=== PATIENT | female | born 1975 | race Caucasian/White ===

== ENCOUNTER 2023-12-03 09:36 | Outpatient (AMB) | payer BC, SELFPAY ==
--- NOTE | 2023-12-03 09:40 | AM.OFFWIN_ITS ---
Intake Vital Signs 12/03/23 09:43 Height 5 ft 4 in Weight 137 lb 2 oz BMI 23.5 BP 108/64 Blood Pressure Location Lt brachial Position Sitting Respiration 13 Pulse 72 Pulse Source Pulse Oximeter Pulse Oximetry (%) 95 Oxygen Delivery Method Room Air Intake Visit Reasons: Allergies Intake Note: Patient reports she has a history of food allergies and she believes she may have another food allergy as she has been experiencing itching throat. Patient reports she is unsure what triggered the symptom, but she would like to be allergy tested again as her last allergy test was 14 years ago. Patient would like a referral to: Dr. 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 Accompanied by: Self / Same As Patient Allergies amoxicillin Allergy (Severe, Verified 12/03/23 09:53) Hives cauliflower Allergy (Severe, Verified 12/03/23 09:53) Rash grapefruit Allergy (Severe, Verified 12/03/23 09:53) Anaphylaxis almonds Allergy (Severe, Uncoded 12/03/23 09:49) Rash Medication List - Last Reconciled 12/03/23 by Ely Ventura, [facility]- albuterol sulfate 90 mcg/actuation inhalation estradiol 0.01%(0.1mg/gram) vaginal fluticasone furoate 100 mcg/actuation (Arnuity Ellipta) 1 inh inhalation DAILY levonorgestrel-ethinyl estrad 0.15-0.03 mg (Marlissa (28)) 1 tab PO DAILY methenamine hippurate 1 g PO BID HPI HPI Comments History of Present Illness Details Here today needing 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 Started after eating white bread, for 1 week, which she needed to do for colon prep; never usually eats white bread. Sx include itchy skin of neck and tongue feels numb. Denies any resp or airway compromise. Reports almond allergy presented in same way w/ numbness of her face. PFSH Social History Patient Tobacco Use Status: Never used Tobacco Review of Systems Const All systems reviewed & are unremarkable except as noted in HPI and below Physical Exam Vital Signs: Last Vital Signs Pulse 72 12/03/23 09:43 Resp 13 12/03/23 09:43 BP 108/64 12/03/23 09:43 Pulse Ox 95 12/03/23 09:43 Oxygen Delivery Method Room Air 12/03/23 09:43 BMI result Body Mass Index 23.5 Const Other: awake alert no facial edema no rash pharynx clear, tongue normal RRR LS CTAB Assessment & Plan Assessment & Plan (1) Allergy: Comment: query related to white bread she has epi-pen at home referral placed for allergy testing advised to avoid known or suspected triggers Code(s): T78.40XA - Allergy, unspecified, initial encounter Qualifiers: Encounter type: initial encounter Qualified Code(s): T78.40XA - Allergy, unspecified, initial encounter Plan . Orders: Referrals Allergy & Immunology Referral T78.40XA - Allergy, unspecified, initial encounter Coding Level of Care Code Est Pt Level 3 (20712) Diagnoses Allergy, initial encounter T78.40XA Encounter type: initial encounter
[2023-12-03 09:43] VITALS: BP 108/64; PULSE 72; RESP 13; O2SAT 95; BMI 23.5
== END 2023-12-03 10:02 | disposition home or self-care (01) ==
PROVIDERS: PCP Family Medicine; Visit Provider Nurse Practitioner Family
DX: T78.40XA Allergy, unspecified, initial encounter (principal)
CPT/HCPCS: 99213

== ENCOUNTER 2024-05-23 09:48 | Outpatient (AMB) | payer BC, SELFPAY ==
--- NOTE | 2024-05-23 10:23 | A.OFFPC_ITS ---
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 Intake Note: establish care Is last menstrual period known: Yes Last menstrual period: 05/16/24 Post menopausal: No Patient : No Allergies amoxicillin Allergy (Severe, Verified 05/23/24 10:24) Hives cauliflower Allergy (Severe, Verified 05/23/24 10:24) Rash grapefruit Allergy (Severe, Verified 05/23/24 10:24) Anaphylaxis almonds Allergy (Severe, Uncoded 05/23/24 10:24) Rash Medication List - Last Reconciled 05/23/24 by Shola Escamilla MD albuterol sulfate 90 mcg/actuation inhalation beclomethasone dipropionate 80 mcg/actuation (Qvar RediHaler) 1 inh inhalation Q12H estradiol 0.01%(0.1mg/gram) vaginal fluticasone furoate 100 mcg/actuation (Arnuity Ellipta) 1 inh inhalation DAILY levonorgestrel-ethinyl estrad 0.15-0.03 mg (Marlissa (28)) 1 tab PO DAILY methenamine hippurate 1 g PO BID Tobacco use date assessed: 05/23/24 Dental Screening Dental Screen Date: 05/23/24 Did you have a dental visit in the last 12 months?: Yes Did you have a dental problem in the last 6 months where you did not have access to dental care?: No Was dental information given to patient?: Patient has dentist 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 ?? Prior PCP:?Dr combs Last office visit/CPE:? 1 yr ago Acute issue(s):? Concerns Re Kidneys ?? PMHx:? Asthma, Mild Sleep Apnea w/ CPAP. Pulm at [facility]. Lyme Disease. Chronic UTIs. SurgHx:? None FHx:?Mom: HTN, HLD, Diverticulitis. Dad: HLD. mGF: bone Cancer . pGF: Lymphoma. SocHx: Nonsmoker. etOH on Vacations. No Drugs HPI Comments History of Present Illness Details Documentation assistance for Shola Escamilla MD, was provided by Fady Smith,? Day Treatment Clinician/Art Therapist on 05/23/2024 at 11:16 AM EST. I, Dr. Escamilla, have read, observed, and verified documentation. 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 1. Little interest or pleasure in doing things: not at all 2. Feeling down, depressed, or hopeless: not at all 3. Trouble falling or staying asleep, or sleeping too much: not at all 4. Feeling tired or having little energy: not at all 5. Poor appetite or overeating: not at all 6. Feeling bad about yourself - or that you are a failure or have let yourself or your family down: not at all 7. Trouble concentrating on things, such as reading the newspaper or watching television: not at all 8. Moving or speaking so slowly that other people could have noticed. Or the opposite - being so fidgety or restless that you have been moving around a lot more than usual: not at all 9. Thoughts that you would be better off or of hurting yourself in some way: not at all Total score: 0 Depression Screening Interpretation: Negative Depression Screening Done: Yes 43901 - PHQ-9 Billing: Yes Source: Developed by Drs. Macario Krishnamurthy, Zainab Weber, Jose Alfredo Upton and colleagues, with an educational walt from [employer]. Thrive Questionnaire Date Thrive assessed: 05/23/24 I am a: Patient What is your living situation today?: I have a steady place to live Within the past 12 months, did the food you bought not last and you didn't have the money to get more?: Never true Within the past 12 months, did you worry whether your food would run out before you got money to buy more?: Never true Do you have trouble paying for medicines?: No Do you have trouble getting transportation to medical appointments?: No Do you have trouble paying your heating and electricity bill?: No Do you have trouble taking care of your child, family member or friend?: No Do you have trouble with day-to-day activities such as bathing, preparing meals, shopping, managing finances, etc.?: No Are you currently unemployed and looking for a job?: No Are you interested in more education?: No Please select the resources that you would like help with: None Currently or been in a relationship where the following occur: No concerns reported THRIVE Score: 0 AUDIT C Alcohol Use Questionnaire (AUDIT-C) 1. How often do you have a drink containing alcohol?: Never 2. How many drinks containing alcohol do you have on a typical day when you are drinking?: 1 or 2 3. How often do you have six or more drinks on one occasion?: Never Total Score: 0 ANNA-7 AMB Questionnaire ANNA-7 Date ANNA - 7 assessed: 05/23/24 Feeling nervous, anxious, or on edge: 0 = Not at all Not being able to stop or control worryin = Not at all Worrying too much about different things: 0 = Not at all Trouble relaxin = Not at all Being so restless that it is hard to sit still: 0 = Not at all Becoming easily annoyed or irritable: 0 = Not at all Feeling afraid as if something awful might happen: 0 = Not at all Total ANNA-7 score (0-4 normal; 5-9 mild; 10-14 moderate; 15-21 severe): 0 Source: Developed by Drs. Macario Krishnamurthy, Zainab Weber, Jose Alfredo Upton and colleagues, with an educational walt from [employer]. ANNA-7 Assessment Billing ANNA-7 Assessment Tool: ANNA-7 Assessment 97674 ACT Questionnaire In the past 4 weeks, how much of the time did your asthma keep you from getting as much done at work, school or at home?: None of the time During the past 4 weeks, how often have you had shortness of breath?: Not at all During the past 4 weeks, how often did your asthma symptoms wake you up at night or earlier than usual in the morning?: Not at all During the past 4 weeks, how often have you had to use your rescue inhaler or nebulizer medication?: Not at all How would you rate your asthma control during the past 4 weeks?: Completely controlled Score: 25 Review of Systems Const Denies chills, Denies fatigue, Denies fever(s), Denies headache(s) and Denies weakness ENT Denies dizziness and Denies headache(s) Card Denies chest pain, Denies lightheadedness, Denies dyspnea and Denies other (Palpitations) Resp Denies cough, Denies dyspnea, Denies wheezing and Denies other ( shortness of breath) Musc Denies numbness and Denies tingling Neuro Denies dizziness, Denies headache(s), Denies numbness, Denies tingling, Denies paresthesias and Denies weakness Psych Denies anxiety and Denies depression Endo Denies fatigue Aller/Immun Denies wheezing Physical exam (Primary Care) Vital Signs: Last Vital Signs Temp 98.0 F 05/23/24 10:29 Pulse 65 05/23/24 10:29 Resp 16 05/23/24 10:29 BP 110/64 05/23/24 10:29 Pulse Ox 100 05/23/24 10:29 Oxygen Delivery Method Room Air 05/23/24 10:29 BMI result Body Mass Index 23.0 Tobacco/Smoking Status: Tobacco use Status Tobacco use date assessed 05/23/24 05/23/24 10:32 Patient Tobacco Use Status Never used Tobacco 05/23/24 10:32 e-Cigarette/Vaping Use Never Used 05/23/24 10:32 PHQ-9: PHQ-9 Score PHQ-9: Total score 0 05/23/24 10:44 Depression Screening Interpretation: Negative Thrive Assessment: Date of Thrive Assessment Date Thrive assessed 05/23/24 05/23/24 10:32 Currently or been in a relationship where the following occur: No concerns reported Const General: no acute distress and well developed Nutritional Appearance: well nourished Orientation/consciousness: patient oriented x3 HENMT Head: Yes normocephalic and Yes atraumatic Eyes General: appearance normal, both eyes and all related structures Pupils: Equal, round and reactive pupils present EOM: EOMs intact bilaterally Resp Effort & Inspection: normal respiratory effort Auscultation: clear to auscultation bilaterally Cardio Rate: regular rate Rhythm: regular rhythm Heart sounds: S1 normal heart sound present, S2 normal heart sound present, no gallops, no murmurs and no rubs Neuro General: patient oriented x3 and gait normal Cranial nerves: Yes Equal, round and reactive pupils present Psych Affect: normal affect Coding Level of Care Code New Pt Level 3 (85896) Diagnoses Asthma J45.909 Sleep apnea G47.30 History of Lyme disease Z86.19 Chronic UTI N39.0 Laboratory exam ordered as part of routine general medical examination Z00.00 Additional Codes ANNA-7 Assessment Billing - ANNA-7 Assessment Tool: ANNA-7 Assessment 80535 ([id number]) Assessment & Plan Assessment & Plan (1) Asthma: Code(s): J45.909 - Unspecified asthma, uncomplicated Category: Medical Plan: Stable?and?patient?is?breathing?easily.??Pulmonary?auscultation?today?was?normal Continue?current?medication?regimen Follow-up?with?Pulmonary?as?recommended (2) Sleep apnea: Code(s): G47.30 - Sleep apnea, unspecified Category: Medical Plan: Uses?CPAP Follow-up?with?Pulmonary?as?recommended (3) History of Lyme disease: Code(s): Z86.19 - Personal history of other infectious and parasitic diseases Category: Medical Plan: Treated/resolved (4) Chronic UTI: Code(s): N39.0 - Urinary tract infection, site not specified Category: Medical Plan: She?is?on?methenamine?hippurate She?is?followed?by?Urogynecology Follow?with?specialist?as?recommended (5) Laboratory exam ordered as part of routine general medical examination: Code(s): Z00.00 - Encounter for general adult medical examination without abnormal findings Category: Medical Plan: Check?labs
[2024-05-23 10:29] VITALS: BP 110/64; PULSE 65; RESP 16; TEMP 36.7; O2SAT 100; BMI 23.0
== END 2024-05-23 11:18 | disposition home or self-care (01) ==
PROVIDERS: PCP Family Medicine; Visit Provider Family Medicine
DX: J45.909 Unspecified asthma, uncomplicated (principal); G47.30 Sleep apnea, unspecified; Z86.19 Personal history of other infectious and parasitic diseases; N39.0 Urinary tract infection, site not specified; Z00.00 Encounter for general adult medical examination without abnormal findings

== ENCOUNTER → 2024-05-23 09:48 | Outpatient (BNVA) | payer BC, SELFPAY | PROVIDERS: PCP Family Medicine; Visit Provider Family Medicine | DX: Z00.00 Encounter for general adult medical examination without abnormal findings (principal); J45.909 Unspecified asthma, uncomplicated; G47.30 Sleep apnea, unspecified; N39.0 Urinary tract infection, site not specified; Z86.19 Personal history of other infectious and parasitic diseases | CPT/HCPCS: 96127; 96160 ==

== ENCOUNTER 2024-05-30 07:38 | Outpatient (REF) | payer BC, SELFPAY ==
[2024-05-30 11:38] LABS: MANUAL DIFF FLAG NO
[2024-05-30 11:49] LABS: Basophils Absolute Auto 0.2 X10*3/uL (0.0-0.2); Basophils Percent Auto 1.8 % (0-2); Eosinophils Absolute Auto 0.4 X10*3/uL (0.0-0.4); Eosinophils Percent Auto 4.2 % (0-4); Hematocrit 37.3 % (37.0-47.0); Imm Gran Abs Auto 0.03 X10*3/uL (0.00-0.03); Imm Gran Pct Auto 0.3 % (0.0-0.4); Lymphocytes Absolute Auto 2.5 X10*3/uL (1.2-4.9); Lymphocytes Percent Auto 26.3 % (20-40); Mean Corpuscular HGB Conc 32.2 g/dl (31.0-35.0); Mean Corpuscular Hemoglobin 30.8 pg (27.0-33.0); Mean Corpuscular Volume 95.6 fL (80.0-98.0); Mean Platelet Volume 9.4 fL (9.4-12.3); Monocytes Absolute Auto 0.5 X10*3/uL (0.1-1.2); Monocytes Percent Auto 5.7 % (2-11); Neutrophils Absolute Auto 5.8 x10*3/uL (2.0-8.3); Neutrophils Percent Auto 61.7 % (45-73); Platelet Count 245 X10*3/uL (160-400); Red Cell Distribution Width 11.9 % (11.0-16.0); White Blood Count 9.4 X10*3/uL (4.8-10.8)
[2024-05-30 11:55] LABS: Appearance Urine Clear; Color Urine Yellow; Glucose Urine UA Negative (Negative); Leukocyte Esterase Urine Negative (Negative); Nitrite Urine Negative (Negative); Specific Gravity - Urine <= 1.005 (1.005-1.025); Urine Blood Negative (Negative); Urine Ketones Negative (Negative); Urine Protein Negative (Neg-Trace)
[2024-05-30 12:47] LABS: Alanine Aminotransferase 13 U/L (0-31); Albumin Level 4.2 g/dL (3.5-5.0); Alkaline Phosphatase 59 U/L (39-117); Anion Gap 10 (12-20); Aspartate Amino Transferase 26 U/L (5-31); Bilirubin Total 0.7 mg/dL (0.0-1.0); Blood Urea Nitrogen 19 mg/dL (9-16); Carbon Dioxide 27 mmol/L (22-29); Chloride 106 mmol/L (96-108); Cholesterol 177 mg/dL (<200); Estimated Glomerular Filt Rate 56; Glucose Fasting 85 mg/dL (60-99); HDL Cholesterol 62 mg/dL (>40); LDL Cholesterol Calculated 105 mg/dL (<100); Sodium 139 mmol/L (135-145); TSH reflex Free T4 1.31 uIU/mL (0.32-4.0); Total Protein 6.7 g/dL (6.5-8.0); Triglycerides 52 mg/dL (<150)
[2024-05-30 12:49] LABS: Creatinine Urine 12.69 mg/dL; Microalbumin Urine < 5.0 mg/L
== END 2024-05-30 07:39 | disposition home or self-care (01) ==
LOC: HO.WFDLDS 07:38
PROVIDERS: Visit Provider Family Medicine
DX: Z00.00 Encounter for general adult medical examination without abnormal findings (principal); I10 Essential (primary) hypertension
CPT/HCPCS: 36415; 80053; 80061; 81003; 82043; 82570; 84443; 85025

== ENCOUNTER 2024-06-09 12:13 | Outpatient (AMB) | payer BC, SELFPAY ==
--- NOTE | 2024-06-09 12:52 | MHC.PC.OV ---
Vital Signs 06/09/24 12:53 Height 5 ft 5 in Weight 134 lb 6 oz BMI 22.4 BP 108/68 Blood Pressure Location Lt brachial Position Sitting Pulse 57 Pulse Source Pulse Oximeter Pulse Oximetry (%) 99 Oxygen Delivery Method Room Air Intake Visit Reasons: CPE with f/u labs and health maint Intake Note: Physical, lab results Allergies amoxicillin Allergy (Severe, Verified 06/09/24 12:53) Hives cauliflower Allergy (Severe, Verified 06/09/24 12:53) Rash grapefruit Allergy (Severe, Verified 06/09/24 12:53) Anaphylaxis almonds Allergy (Severe, Uncoded 06/09/24 12:53) Rash Medication List - Last Reconciled 06/09/24 by Rema Omer PA-C albuterol sulfate 90 mcg/actuation inhalation beclomethasone dipropionate 80 mcg/actuation (Qvar RediHaler) 1 inh inhalation Q12H estradiol 0.01%(0.1mg/gram) vaginal levonorgestrel-ethinyl estrad 0.15-0.03 mg (Loreelissa (28)) 1 tab PO DAILY methenamine hippurate 1 g PO BID Tobacco use date assessed: 05/23/24 Dental Screening Dental Screen Date: 05/23/24 HPI CPE with f/u labs and health maint HPI Details Patient is a 48-year-old female with a significant past medical history of chronic UTIs, overactive bladder and chronic kidney disease stage 3 a, presenting today for a physical exam. Follows with Dr. Escamilla and completed labs prior to appointment. Her main concern is that her kidney function since 2021 has shown a decrease with a GFR between 56 and 70. She states it only ever gets to 70 when she is very well hydrated. She avoids NSAIDs. She states that she is stressed because she does not know why or how she got this. She did follow with Nephrology at 1 point and states that they told her she was fine and she states that they never did any imaging and she just does not feel confident with this. She tries very hard to take care of herself and would like a 2nd opinion. Around the time that she developed the kidney disease she also did have Lyme, frequent UTIs, and was on ibuprofen for about 3 months for neck pain. She overall feels well and exercises regularly. Colonoscopy: Completed 11/2023 and needs a repeat in 2028 due to precancerous polyps. mammo: UTD, 06/02- [place] 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 1. Little interest or pleasure in doing things: not at all 2. Feeling down, depressed, or hopeless: not at all 3. Trouble falling or staying asleep, or sleeping too much: not at all 4. Feeling tired or having little energy: not at all 5. Poor appetite or overeating: not at all 6. Feeling bad about yourself - or that you are a failure or have let yourself or your family down: not at all 7. Trouble concentrating on things, such as reading the newspaper or watching television: not at all 8. Moving or speaking so slowly that other people could have noticed. Or the opposite - being so fidgety or restless that you have been moving around a lot more than usual: not at all 9. Thoughts that you would be better off or of hurting yourself in some way: not at all Total score: 0 Source: Developed by Drs. Macario Krishnamurthy, Zainab Weber, Jose Alfredo Upton and colleagues, with an educational walt from [employer]. Thrive Questionnaire Date Thrive assessed: 05/23/24 I am a: Patient What is your living situation today?: I have a steady place to live Within the past 12 months, did the food you bought not last and you didn't have the money to get more?: Never true Within the past 12 months, did you worry whether your food would run out before you got money to buy more?: Never true Do you have trouble paying for medicines?: No Do you have trouble getting transportation to medical appointments?: No Do you have trouble paying your heating and electricity bill?: No Do you have trouble taking care of your child, family member or friend?: No Do you have trouble with day-to-day activities such as bathing, preparing meals, shopping, managing finances, etc.?: No Are you currently unemployed and looking for a job?: No Are you interested in more education?: No Please select the resources that you would like help with: None Currently or been in a relationship where the following occur: No concerns reported THRIVE Score: 0 AUDIT C Alcohol Use Questionnaire (AUDIT-C) 1. How often do you have a drink containing alcohol?: Never Total Score: 0 ANNA-7 AMB Questionnaire ANNA-7 Date ANNA - 7 assessed: 05/23/24 Feeling nervous, anxious, or on edge: 0 = Not at all Not being able to stop or control worryin = Not at all Worrying too much about different things: 0 = Not at all Trouble relaxin = Not at all Being so restless that it is hard to sit still: 0 = Not at all Becoming easily annoyed or irritable: 0 = Not at all Feeling afraid as if something awful might happen: 0 = Not at all Total ANNA-7 score (0-4 normal; 5-9 mild; 10-14 moderate; 15-21 severe): 0 Source: Developed by Drs. Macario Krishnamurthy, Zainab Weber, Jose Alfredo Upton and colleagues, with an educational walt from [employer]. Physical exam (Primary Care) Vital Signs: Last Vital Signs Pulse 57 06/09/24 12:53 BP 108/68 06/09/24 12:53 Pulse Ox 99 06/09/24 12:53 Oxygen Delivery Method Room Air 06/09/24 12:53 BMI result Body Mass Index 22.4 Tobacco/Smoking Status: Tobacco use Status Tobacco use date assessed 05/23/24 06/09/24 12:55 Patient Tobacco Use Status Never used Tobacco 06/09/24 12:55 e-Cigarette/Vaping Use Never Used 06/09/24 12:55 PHQ-9: PHQ-9 Score PHQ-9: Total score 0 06/09/24 13:18 Thrive Assessment: Date of Thrive Assessment Date Thrive assessed 05/23/24 06/09/24 12:55 Currently or been in a relationship where the following occur: No concerns reported Const Orientation/consciousness: patient oriented x3 HENMT Ears: hearing grossly normal bilaterally and TM's normal bilaterally General nose exam: No nasal polyps present Face and sinus: Yes sinuses nontender Mouth: Normal oral and palatal mucosa present Eyes Pupils: Equal, round and reactive pupils present EOM: EOMs intact bilaterally Neck Neck: Yes full ROM and Yes no lymphadenopathy Thyroid: Thyroid normal Chest Chest palpation & inspection: normal inspection of the chest Resp Auscultation: clear to auscultation bilaterally Cardio Rate: regular rate Rhythm: regular rhythm Heart sounds: S1 normal heart sound present and S2 normal heart sound present Peripheral pulses: Peripheral pulses 2+ throughout GI Other: Soft, nontender Auscultation: normal bowel sounds Rectal Exam - Female: deferred General: Yes no CVA tenderness Back/Spine/Pelvis Other: Nontender Back: no CVA tenderness Skin General skin exam: no rashes or lesions noted Neuro General: patient oriented x3, gait normal, CN's II-XI intact bilaterally and deep tendon reflexes 2+ bilaterally Cranial nerves: Yes Equal, round and reactive pupils present Motor exam (neuro): 5/5 motor strength present throughout Sensory Exam: double simultaneous stimulation for sensation normal Coordination: [id number] test normal and Romberg test negative Extrem General: Yes normal to inspection and Yes full ROM Psych Affect: normal affect Attitude: cooperative Thought process: Normal thought process present Thought content: Normal thought content present Insight: Good insight present (Psych) Judgement: Good judgement present (Psych) Results Reviewed Results Reviewed: Laboratory Tests 05/30/24 05/30/24 07:39 07:45 WBC 9.4 RBC 3.90 L Hgb 12.0 Hct 37.3 Plt Count 245 Sodium 139 Potassium 4.0 Chloride 106 Carbon Dioxide 27 Anion Gap 10 L BUN 19 H Creatinine 1.05 Estimated GFR 56 Fasting Glucose 85 Calcium 9.0 Total Bilirubin 0.7 AST 26 ALT 13 Alkaline Phosphatase 59 Total Protein 6.7 Albumin 4.2 Triglycerides 52 Cholesterol 177 LDL Cholesterol, Calc 105 H HDL Cholesterol 62 TSH 1.31 Urine Creatinine 12.69 Urine Microalbumin < 5.0 Microalb/Creat Ratio TNP Coding Level of Care Code Est Pt Prev Care 40-64y(95712) Diagnoses Routine general medical examination at a health care facility Z00.00 Stage 3a chronic kidney disease N18.31 Chronic kidney disease stage 3 subtype: stage 3a (GFR 45-59) Assessment & Plan Assessment & Plan (1) Routine general medical examination at a health care facility: Code(s): Z00.00 - Encounter for general adult medical examination without abnormal findings Plan: reviewed labs reviewed (2) CKD (chronic kidney disease) stage 3, GFR 30-59 ml/min: Code(s): N18.30 - Chronic kidney disease, stage 3 unspecified Category: Medical Qualifiers: Chronic kidney disease stage 3 subtype: stage 3a (GFR 45-59) Qualified Code(s): N18.31 - Chronic kidney disease, stage 3a Plan: referral to nephro avoid NSAIDs stay hydrated Orders: Referrals Nephrology Referral N18.30 - Chronic kidney disease, stage 3 unspecified Dermatology Referral Z12.83 - Encounter for screening for malignant neoplasm of skin Sleep Medicine Referral G47.30 - Sleep apnea, unspecified
[2024-06-09 12:53] VITALS: BP 108/68; PULSE 57; O2SAT 99; BMI 22.4
== END 2024-06-09 13:39 | disposition home or self-care (01) ==
LOC: HO.HMCFM 12:14
PROVIDERS: PCP Family Medicine; Visit Provider Physician Assistant
DX: Z00.00 Encounter for general adult medical examination without abnormal findings (principal); N18.31 Chronic kidney disease, stage 3a

== ENCOUNTER → 2024-06-09 12:13 | Outpatient (BNVA) | payer BC, SELFPAY | PROVIDERS: PCP Family Medicine; Visit Provider Physician Assistant ==

== ENCOUNTER 2024-06-29 15:34 | Outpatient (AMB) | payer BC, SELFPAY ==
--- NOTE | 2024-06-29 15:38 | HO.NEPHOV ---
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 She is wondering whether she has stage IIIA chronic kidney disease. She had extensive medical records records going back into 10 years. Her baseline serum creatinine has been 1.0 for many years and when she started exercising more serum creatinine had fluctuated to 1.05 and got even closer to 1.15 but never crossing over more than 1.2 or 1.3. She had 24 hour urine collection for creatinine clearance in the past and was found to have creatinine clearance of 100 at that time. She never had proteinuria even though she has had she has had intermittent microscopic hematuria. As per the patient, in the past, if any time when she gets some microscopic hematuria she was told she may have a UTI and was getting treated. Her blood pressure always have been normal. She does not have any sensorineural deafness. She is active and employed. She does not take any excessive nonsteroidal anti-inflammatories. She tries to maintain good hydration. She does not have any photosensitivity, recurrent sore throat, sinusitis, joint pains, epistaxis, macroscopic hematuria, pedal edema. She has no history of any drug use. She has no history of hepatitis or HIV. She denied any renal calculus. She has no history of vascular disease, Raynaud's phenomenon, swallowing difficulty, uveitis, dry eyes or history of any autoimmune disorders. She does not take any regular systemic medications. She has no family history of any ESRD or renal transplantation. She claimed to have one episode of low blood pressure in the postoperative room after excision of a cyst in the body. She has no history of carotid stenosis, coronary artery disease, congestive heart failure, CVA, peripheral arterial disease. Her renal functions always had been normal. She has no history of any malignancy. She feels well. 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 Current occupational exposures/hazards: No Cognitive needs: No Hearing needs: No Vision needs: Yes Review of Systems Const All systems reviewed & are unremarkable except as noted in HPI and below Physical Exam Vital Signs: Last Vital Signs Pulse 75 06/29/24 15:39 BP 122/72 06/29/24 15:39 Pulse Ox 100 06/29/24 15:39 Oxygen Delivery Method Room Air 06/29/24 15:39 BMI result Body Mass Index 22.5 Const General: comfortable and no acute distress Orientation/consciousness: patient oriented x3 HEENT Head: Yes normocephalic Mouth: Normal oral and palatal mucosa present Eyes EOM: EOMs intact bilaterally Neck Neck: Yes supple Resp Auscultation: clear to auscultation bilaterally Cardio Jugular venous distension: no JVD Rate: regular rate GI Palpation (GI): Soft to palpation Auscultation: normal bowel sounds General: Yes no CVA tenderness Back/Spine/Pelvis Back: no CVA tenderness Skin General skin exam: no rashes or lesions noted Neuro General: patient oriented x3 and moves all extremities Extrem General: Yes no pedal edema Results Reviewed Nephrology Results: Hgb 12.0 g/dl (12.0-16.0) 05/30/24 WBC 9.4 X10*3/uL (4.8-10.8) 05/30/24 Plt Count 245 X10*3/uL (160-400) 05/30/24 Sodium 139 mmol/L (135-145) 05/30/24 Potassium 4.0 mmol/L (3.3-5.1) 05/30/24 Chloride 106 mmol/L (96-108) 05/30/24 Carbon Dioxide 27 mmol/L (22-29) 05/30/24 BUN 19 mg/dL (9-16) H 05/30/24 Creatinine 1.05 mg/dL (0.5-1.4) 05/30/24 Calcium 9.0 mg/dL (8.4-10.2) 05/30/24 Urine Protein Negative mg/dL (Neg-Trace) 05/30/24 Urine Creatinine 12.69 mg/dL 05/30/24 Assessment & Plan Assessment & Plan (1) Elevated serum creatinine: Code(s): R79.89 - Other specified abnormal findings of blood chemistry Category: Medical Plan Alexis his serum creatinine 1.05. She does not have any proteinuria or hypertension. She has had history of intermittent microscopic hematuria but does not have any sensorineural deafness. She has no family history of any renal disease, ESRD or renal transplantation. Her blood pressure always has been at goal. Her urine output is good. She had a creatinine clearance tested by a 24 hour urine collection in the past which was normal. Given she has intermittent microscopic hematuria, it may be possible that she has either thin membrane disease or IgA nephropathy. Alport syndrome is unlikely given no hearing issues or family history. I ordered a urinalysis, urine protein creatinine ratio and creatinine clearance by 24 hour urine collection. She avoids nonsteroidal anti-inflammatories and maintain good hydration. I did not make any medication changes today but further management is pending evolving data. Time spent with the patient, retrieving records, documentation 62 minutes. Answered all questions. Follow-up given in 3 months Orders: Orders Creatinine Clearance Urine 24U 3 Months - Other specified abnormal findings of blood chemistry UA and rflx microscopic 3 Months - Other specified abnormal findings of blood chemistry Protein Creatinine Ratio, Ur 3 Months - Other specified abnormal findings of blood chemistry Coding Level of Care Code New Pt Level 5 (90130) Diagnoses Elevated serum creatinine R7.
[2024-06-29 15:39] VITALS: BP 122/72; PULSE 75; O2SAT 100; BMI 22.5
== END 2024-06-29 16:25 | disposition home or self-care (01) ==
PROVIDERS: PCP Family Medicine; Referring Provider Physician Assistant; Visit Provider Internal Medicine Nephrology
DX: R79.89 Other specified abnormal findings of blood chemistry (principal)
CPT/HCPCS: 99205

== ENCOUNTER 2024-09-14 15:44 | Outpatient (AMB) | payer BC, SELFPAY ==
--- NOTE | 2024-09-14 16:03 | HO.NEPHOV ---
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 She had been wondering whether she has stage IIIA chronic kidney disease. She had extensive medical records records going back into 10 years. Her baseline serum creatinine has been 1.0 for many years and when she started exercising more serum creatinine had fluctuated to 1.05 and got even closer to 1.15 but never crossing over more than 1.2 or 1.3. She had 24 hour urine collection for creatinine clearance in the past and was found to have creatinine clearance of 100 at that time. She never had proteinuria even though she has had she has had intermittent microscopic hematuria. As per the patient, in the past, if any time when she gets some microscopic hematuria she was told she may have a UTI and was getting treated. Her blood pressure always have been normal. She does not have any sensorineural deafness. She is active and employed. She does not take any excessive nonsteroidal anti-inflammatories. She tries to maintain good hydration. She does not have any photosensitivity, recurrent sore throat, sinusitis, joint pains, epistaxis, macroscopic hematuria, pedal edema. She has no history of any drug use. She has no history of hepatitis or HIV. She denied any renal calculus. She has no history of vascular disease, Raynaud's phenomenon, swallowing difficulty, uveitis, dry eyes or history of any autoimmune disorders. She does not take any regular systemic medications. She has no family history of any ESRD or renal transplantation. She claimed to have one episode of low blood pressure in the postoperative room after excision of a cyst in the body. She has no history of carotid stenosis, coronary artery disease, congestive heart failure, CVA, peripheral arterial disease. Her renal functions always had been normal. She has no history of any malignancy. She feels well. 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 Current occupational exposures/hazards: No Cognitive needs: No Hearing needs: No Vision needs: Yes Review of Systems Const All systems reviewed & are unremarkable except as noted in HPI and below Physical Exam Const General: comfortable and no acute distress Orientation/consciousness: patient oriented x3 HEENT Head: Yes normocephalic Mouth: Normal oral and palatal mucosa present Eyes EOM: EOMs intact bilaterally Neck Neck: Yes supple Resp Auscultation: clear to auscultation bilaterally Cardio Jugular venous distension: no JVD Rate: regular rate GI Palpation (GI): Soft to palpation Auscultation: normal bowel sounds General: Yes no CVA tenderness Back/Spine/Pelvis Back: no CVA tenderness Skin General skin exam: no rashes or lesions noted Neuro General: patient oriented x3 and moves all extremities Extrem General: Yes no pedal edema Results Reviewed Nephrology Results: Hgb 12.0 g/dl (12.0-16.0) 05/30/24 WBC 9.4 X10*3/uL (4.8-10.8) 05/30/24 Plt Count 245 X10*3/uL (160-400) 05/30/24 Sodium 139 mmol/L (135-145) 08/29/24 Potassium 3.9 mmol/L (3.3-5.1) 08/29/24 Chloride 110 mmol/L (96-108) H 08/29/24 Carbon Dioxide 23 mmol/L (22-29) 08/29/24 BUN 19 mg/dL (9-16) H 08/29/24 Creatinine 0.90 mg/dL (0.5-1.4) 08/29/24 Calcium 8.5 mg/dL (8.4-10.2) 08/29/24 PTH Intact 90.3 pg/mL (8.7-77.1) H 08/29/24 Urine Protein Negative mg/dL (Neg-Trace) 05/30/24 Urine Creatinine 67.37 mg/dL 08/29/24 Protein/Creatinin Ratio TNP 08/29/24 Assessment & Plan Assessment & Plan (1) Elevated serum creatinine: Code(s): R789 - Other specified abnormal findings of blood chemistry Category: Medical (2) Vitamin D deficiency: Code(s): E55.9 - Vitamin D deficiency, unspecified Category: Medical Plan Alexis has H/O serum creatinine of 1.05. She does not have any proteinuria or hypertension. She has had history of intermittent microscopic hematuria but does not have any sensorineural deafness. She has no family history of any renal disease, ESRD or renal transplantation. Her blood pressure always has been at goal. Her urine output is good. She had a creatinine clearance tested by a 24 hour urine collection in the past which was normal. Given she has intermittent microscopic hematuria, it may be possible that she has either thin membrane disease or IgA nephropathy. Alport syndrome is unlikely given no hearing issues or family history. Her W/U has been negative and she has normal GFR. She avoids nonsteroidal anti-inflammatories and maintain good hydration. I did not make any medication changes today. Answered all questions. Orders: Orders UA and rflx microscopic 1 Year - Other specified abnormal findings of blood chemistry Protein Creatinine Ratio, Ur 1 Year - Other specified abnormal findings of blood chemistry Creatinine 1 Year - Other specified abnormal findings of blood chemistry Blood Urea Nitrogen 1 Year - Other specified abnormal findings of blood chemistry Vitamin D 25-OH Total 1 Year - Other specified abnormal findings of blood chemistry Electrolytes 1 Year - Other specified abnormal findings of blood chemistry Parathyroid Hormone Intact 1 Year - Other specified abnormal findings of blood chemistry Medications: New cholecalciferol (vitamin D3) 1,250 mcg PO .Q monthly 12 months 12 caps 1RF Coding Level of Care Code Est Pt Level 4 (73603) Diagnoses Elevated serum creatinine Vitamin D deficiency E55.9
[2024-09-14 16:11] VITALS: BP 122/72; PULSE 64; O2SAT 100; BMI 23.7
--- OUTSIDE RECORDS SUMMARY | 2024-09-14 16:26 | XMS_ITS | Clinical Summary ---
Author Organization [facility], Address [address] [place] [address] Phone Care Team Providers Care Associate Director Finance Name Role Phone Ursula Fuller MD Primary Care Provider [phone] Allergies Active Allergy Reactions Criticality Noted Date Comments [place] Oil 06/05/2022 Amoxicillin 06/05/2022 Medications levonorgestrel-e thinyl estradiol (NORDETTE) 0.15-30 MG-MCG per tablet Take 1 tablet by mouth 1 (one) time each day Active Active Problems No known active problems Social History Tobacco Use Types Packs/Day Years Used Date Smoking Tobacco: Never Assessed Comments Unknown Sex and Gender Information Value Date Recorded Sex Assigned at Not on file Legal Sex Female 2:51 PM EDT Gender Identity Not on file Sexual Orientation Not on file Plan of Treatment Health Maintenance Due Date Last Done Comments Pneumococcal Vaccine: Pediat rics (0 to 5 Years) and At-Risk Patients (6 to 64 Years) (1 of 2 - PCV) 11/30/1983 Hepatitis B Vaccine (1 of 3 - 19+ 3-dose series) 11/29 Influenza Vaccine (#1) 2024 Insurance [facility] Care Teams Associate Director Finance Relationship Specialty Start Date End Date Ursula Fuller MD [address] [place] [address], [facility] [address] [place] [address] PCP - General Internal Medicine 04/10/22
--- OUTSIDE RECORDS SUMMARY | 2024-09-14 16:26 | XMS_ITS | Encounter Summary ---
Author Organization [facility] Address [address] [place] [address] Phone Care Team Providers Care Chair Inspector And Leveler Name Role Phone Ursula Fuller MD Primary Care Provider [phone] Encounter Details Date Type Department Care Team (Late st Contact Info) Description 04/10/2022 Documentation Only [facility] [address] [place] [address] Ursula Fuller MD [address] [place], [place] [id number] Social History Tobacco Use Types Packs/Day Years Used Date Smoking Tobacco: Never Assessed Comments Unknown Sex and Gender Information Value Date Recorded Sex Assigned at Not on file Legal Sex Female 2:51 PM EDT Gender Identity Not on file Sexual Orientation Not on file documented as of this encounter Plan of Treatment Not on file documented as of this encounter Visit Diagnoses Not on filedocumented in this encounter Care Teams Chair Inspector And Leveler Relationship Specialty Start Date End Date Ursula Fuller MD [address] [place] [address], [address] [place], [place] [id number] PCP - General Internal Medicine 04/10/22 documented as of this encounter
== END 2024-09-14 16:31 | disposition home or self-care (01) ==
PROVIDERS: PCP Family Medicine; Visit Provider Internal Medicine Nephrology
DX: R79.89 Other specified abnormal findings of blood chemistry (principal); E55.9 Vitamin D deficiency, unspecified
CPT/HCPCS: 99214

== ENCOUNTER → 2024-09-14 15:44 | Outpatient (BNVA) | payer BC, SELFPAY | PROVIDERS: PCP Family Medicine; Visit Provider Internal Medicine Nephrology ==

== ENCOUNTER 2025-03-16 10:42 | Outpatient (AMB) | payer BC, SELFPAY ==
--- NOTE | 2025-03-16 10:46 | MHC.PC.OV ---
Vital Signs 03/16/25 10:51 Height 5 ft 5 in Weight 146 lb 2 oz BMI 24.3 BP 132/70 Blood Pressure Location Lt brachial Position Sitting Respiration 12 Pulse 55 Pulse Source Pulse Oximeter Temp 97.1 F Temp Source Oral Pulse Oximetry (%) 99 Oxygen Delivery Method Room Air Intake Visit Reasons: Ortho referral/JOSSELIN from [facility] Intake Note: JOSSELIN to establish care and also requesting referral Infrastructure Engineer Required: No Allergies amoxicillin Allergy (Severe, Verified 03/16/25 11:10) Hives cauliflower Allergy (Severe, Verified 03/16/25 11:10) Rash grapefruit Allergy (Severe, Verified 03/16/25 11:10) Anaphylaxis almonds Allergy (Severe, Uncoded 03/16/25 10:47) Rash Medication List - Last Reconciled 03/16/25 by Ely Ventura ELECTRONIC CONTROLS REPAIRER SUPERVISOR- albuterol sulfate 90 mcg/actuation inhalation PRN beclomethasone dipropionate 80 mcg/actuation (Qvar RediHaler) 1 inh inhalation Q12H PRN cholecalciferol (vitamin D3) 1,250 mcg PO .Q monthly 12 months estradiol 0.01%(0.1mg/gram) vaginal levonorgestrel-ethinyl estrad 0.15-0.03 mg (Marlissa (28)) 1 tab PO DAILY methenamine hippurate 1 g PO BID Tobacco use date assessed: 03/16/25 Dental Screening Dental Screen Date: 03/16/25 Did you have a dental visit in the last 12 months?: Yes Did you have a dental problem in the last 6 months where you did not have access to dental care?: No Was dental information given to patient?: Patient has dentist HPI HPI Comments History of Present Illness Details 49-year-old female with chronic UTIs, overactive bladder, chronic kidney disease stage 3A, JAKE, Lymes disease SurgHx: None FHx: Mom: HTN, HLD, Diverticulitis. Dad: HLD. mGF: bone Cancer . pGF: Lymphoma. SocHx: Nonsmoker. etOH on Vacations. No Health Maintenance: Colonoscopy: Completed 11/2023 and needs a repeat in 2028 due to precancerous polyps. 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 - Dx with hallux rigidus affecting L great toe. Has HMO. Went to [facility] 03/09/25 needs referral for coverage. She may cont. there for injections. - Reports tingling in toes on the right foot, would like to see [facility] for this - Familial history of similar lower extremity issues indicated. - Needs work accomodation letter to wear sneakers: given to her today - Due for Tdap, willing to get today. Review of Systems - Musculoskeletal: Reports hallux rigidus of the left great toe, tingling in right foot toes. - Neurological: Denies tingling in left big toe, reports tingling in other toes on the right foot. Physical Exam General: Well developed, well nourished, in no acute distress. Appears stated age. Head: Normocephalic, atraumatic. Eyes: Pupils are equal, round and reactive to light and accommodation. Lungs: Speaking in full sentences Psych: Mood and affect appropriate. Discussion Notes I discussed the patient's need for orthopedic consultation concerning her left hallux rigidus and the tingling sensation in her right foot. We agreed on initiating referral processes to [facility] for further evaluation and possible pain management, including injections. There was also a discussion about obtaining paperwork to allow the patient to wear sneakers at work to alleviate symptoms. Consent to arrange these referrals and supportive work provisions was discussed with the patient. Patient was given time to ask questions. All questions were answered to their satisfaction. Assessment and Plan 1. Chronic Urinary Tract Infections - Monitor hydration and symptoms. 2. Chronic Kidney Disease Stage 3a - Regular kidney function test monitoring. - Active w/ Renal 3. Hallux Rigidus, Left Great Toe - [facility] referral and possible pain management injections. 4. Right Foot Tingling - Ortho specialist referral. [facility] Work accommodation given Tdap admin RTO Nov for CPE, labs 1 week before. Consent Patient was informed and verbally consented to the use of an ambient scribe for clinic note documentation during this visit. Total time spent caring for the patient today was 30 minutes. This includes time spent before the visit reviewing the chart, time spent during the visit, and time spent after the visit on documentation, reviewing laboratory results, diagnostic imaging, medications, performing a medically necessary evaluation, counseling on diagnoses, care coordination, ordering appropriate tests, ordering appropriate medications, review of tests performed by other providers, reporting test results with the patient, communication with other healthcare providers. [facility] Medical History (Updated 03/16/25 @ 11:17 by Ely Ventura [facility]) Allergic No pertinent family history Surgical History (Updated 03/16/25 @ 10:49 by Lashawn Pablo MA) No pertinent past surgical history Social History Housing: House Alcohol intake: current Comment: ocasionally Patient Tobacco Use Status: Never used Tobacco e-Cigarette/Vaping Use: Never Used service: No Current occupational status: employed Current occupation: [employer] Current occupational exposures/hazards: No Cognitive needs: No Hearing needs: No Vision needs: Yes Questionnaire PHQ-9 Over the last 2 weeks, how often have you been bothered by any of the following problems? 1. Little interest or pleasure in doing things: not at all 2. Feeling down, depressed, or hopeless: not at all 3. Trouble falling or staying asleep, or sleeping too much: not at all 4. Feeling tired or having little energy: not at all 5. Poor appetite or overeating: not at all 6. Feeling bad about yourself - or that you are a failure or have let yourself or your family down: not at all 7. Trouble concentrating on things, such as reading the newspaper or watching television: not at all 8. Moving or speaking so slowly that other people could have noticed. Or the opposite - being so fidgety or restless that you have been moving around a lot more than usual: not at all 9. Thoughts that you would be better off or of hurting yourself in some way: not at all Total score: 0 Depression Screening Interpretation: Negative Depression Screening Done: Yes 34631 - PHQ-9 Billing: Yes Source: Developed by Drs. Macario Krishnamurthy, Zainab Weber, Jose Alfredo Upton and colleagues, with an educational walt from [employer]. Thrive Questionnaire Date Thrive assessed: 03/16/25 I am a: Patient What is your living situation today?: I have a steady place to live Within the past 12 months, did the food you bought not last and you didn't have the money to get more?: Never true Within the past 12 months, did you worry whether your food would run out before you got money to buy more?: Never true Do you have trouble paying for medicines?: No Do you have trouble getting transportation to medical appointments?: No Do you have trouble paying your heating and electricity bill?: No Do you have trouble taking care of your child, family member or friend?: No Do you have trouble with day-to-day activities such as bathing, preparing meals, shopping, managing finances, etc.?: No Are you currently unemployed and looking for a job?: No Are you interested in more education?: No Please select the resources that you would like help with: None Currently or been in a relationship where the following occur: No concerns reported THRIVE Score: 0 AUDIT C Alcohol Use Questionnaire (AUDIT-C) 1. How often do you have a drink containing alcohol?: Never 3. How often do you have six or more drinks on one occasion?: Never Total Score: 0 Score Reviewed/Action Taken: Yes ANNA-7 AMB Questionnaire ANNA-7 Date ANNA - 7 assessed: 03/16/25 Feeling nervous, anxious, or on edge: 0 = Not at all Not being able to stop or control worryin = Not at all Worrying too much about different things: 0 = Not at all Trouble relaxin = Not at all Being so restless that it is hard to sit still: 0 = Not at all Becoming easily annoyed or irritable: 0 = Not at all Feeling afraid as if something awful might happen: 0 = Not at all Total ANNA-7 score (0-4 normal; 5-9 mild; 10-14 moderate; 15-21 severe): 0 Source: Developed by Drs. Macario Krishnamurthy, Zainab Weber, Jose Alfredo Upton and colleagues, with an educational walt from [employer]. ANNA-7 Assessment Billing ANNA-7 Assessment Tool: ANNA-7 Assessment 54761 Physical exam (Primary Care) Vital Signs: Last Vital Signs Temp 97.1 F 03/16/25 10:51 Pulse 55 03/16/25 10:51 Resp 12 03/16/25 10:51 BP 132/70 03/16/25 10:51 Pulse Ox 99 03/16/25 10:51 Oxygen Delivery Method Room Air 03/16/25 10:51 BMI result Body Mass Index 24.3 Tobacco/Smoking Status: Tobacco use Status Tobacco use date assessed 03/16/25 03/16/25 10:53 Patient Tobacco Use Status Never used Tobacco 03/16/25 10:53 e-Cigarette/Vaping Use Never Used 03/16/25 10:53 PHQ-9: PHQ-9 Score PHQ-9: Total score 0 03/16/25 10:59 Depression Screening Interpretation: Negative Thrive Assessment: Date of Thrive Assessment Date Thrive assessed 03/16/25 03/16/25 10:53 Currently or been in a relationship where the following occur: No concerns reported Immunizations Boostrix Tdap 2.5 Lf unit-8 mcg-5 Lf/0.5 mL intramuscular syringe Performing Provider: PIPPA Bahena Performing Location: [facility] Administered by: Lashawn Pablo MA on 03/16/25 11:12 Dose Route Admin Location Dispensed Lot Number Expiration Date [facility] Data Deliverables Manager 0.5 mL IM Right Deltoid 0.5 mL [id number] 09/30/26 [id number] mPort Total Dispensed Waste 0.5 mL 0 % VIS Given Date VIS Provided VIS Publication Date 03/16/25 Single Vaccine 21 Eligibility Eligibility Date Funding Source Not [facility] Eligible 03/16/25 Private Coding Level of Care Code Est Pt Level 4 (66961) Complex EM visit Add On G2211 Diagnoses Encounter to establish care with new provider Z76.89 Hallux rigidus of left foot M20.22 Paresthesia of right foot R20.2 Need for Tdap vaccination Z23 Stage 3a chronic kidney disease N18.31 Chronic kidney disease stage 3 subtype: stage 3a (GFR 45-59) Vitamin D deficiency E55.9 Laboratory exam ordered as part of routine general medical examination Z00.00 Additional Codes ANNA-7 Assessment Billing - ANNA-7 Assessment Tool: ANNA-7 Assessment 55675 ([id number]) PHQ-9 - 06099 - PHQ-9 Billing: Yes ([id number]) Assessment & Plan Assessment & Plan (1) Encounter to establish care with new provider: Code(s): Z76.89 - Persons encountering health services in other specified circumstances (2) Hallux rigidus of left foot: Code(s): M20.22 - Hallux rigidus, left foot Category: Medical (3) Paresthesia of right foot: Code(s): R20.2 - Paresthesia of skin Category: Medical (4) Need for Tdap vaccination: Code(s): Z23 - Encounter for immunization Category: Medical (5) CKD (chronic kidney disease) stage 3, GFR 30-59 ml/min: Comment: [facility] Code(s): N18.30 - Chronic kidney disease, stage 3 unspecified Category: Medical Qualifiers: Chronic kidney disease stage 3 subtype: stage 3a (GFR 45-59) Qualified Code(s): N18.31 - Chronic kidney disease, stage 3a (6) Vitamin D deficiency: Code(s): E55.9 - Vitamin D deficiency, unspecified Category: Medical (7) Laboratory exam ordered as part of routine general medical examination: Code(s): Z00.00 - Encounter for general adult medical examination without abnormal findings Category: Medical Plan . Orders: Orders TDaP Immunization Today Z23 - Encounter for immunization Complete Blood Count no Diff 06/04/25 E55.9 - Vitamin D deficiency, unspecified, N18.31 - Chronic kidney disease, stage 3a, Z00.00 - Encounter for general adult medical examination without abnormal findings Comprehensive Met. Panel 06/04/25 E55.9 - Vitamin D deficiency, unspecified, N18.31 - Chronic kidney disease, stage 3a, Z00.00 - Encounter for general adult medical examination without abnormal findings TSH reflex Free T4 06/04/25 E55.9 - Vitamin D deficiency, unspecified, N18.31 - Chronic kidney disease, stage 3a, Z00.00 - Encounter for general adult medical examination without abnormal findings Hemoglobin A1c 06/04/25 E55.9 - Vitamin D deficiency, unspecified, N18.31 - Chronic kidney disease, stage 3a, Z00.00 - Encounter for general adult medical examination without abnormal findings Lipid Panel 06/04/25 E55.9 - Vitamin D deficiency, unspecified, N18.31 - Chronic kidney disease, stage 3a, Z00.00 - Encounter for general adult medical examination without abnormal findings Vitamin B12 and Folate 06/04/25 E55.9 - Vitamin D deficiency, unspecified, N18.31 - Chronic kidney disease, stage 3a, Z00.00 - Encounter for general adult medical examination without abnormal findings Referrals Orthopedics Referral M20.22 - Hallux rigidus, left foot Orthopedics Referral M20.22 - Hallux rigidus, left foot, R20.2 - Paresthesia of skin
[2025-03-16 10:51] VITALS: BP 132/70; PULSE 55; RESP 12; TEMP 36.2; O2SAT 99; BMI 24.3
--- OUTSIDE RECORDS SUMMARY | 2025-03-16 11:24 | XMS_ITS | Clinical Summary ---
Author Organization [facility], Address [address] [place] [phone] Phone Care Team Providers Care Veterinary Radiologist Name Role Phone Ursula Fuller MD Primary Care Provider [phone] Allergies Active Allergy Reactions Criticality Noted Date Comments Gardner Oil 06/05/2022 Amoxicillin 06/05/2022 Medications levonorgestrel-e thinyl [...] Health Maintenance Due Date Last Done Comments Hepatitis B Vaccine (1 of 3 - 19+ 3-dose series) 11/29 Pneumococcal Vaccine: Peds ( 0 to 5 Years) and At-Risk Patients (6 to 49 Years) (1 of 2 - PCV) 1996 Influenza Vaccine (#1) 2025 Insurance [facility] Care Teams Veterinary Radiologist Relationship Specialty Start Date End Date Ursula Fuller MD [address] [place] [address], [facility] [address] [place] [address] PCP - General Internal Medicine 04/10/22
--- OUTSIDE RECORDS SUMMARY | 2025-03-16 11:24 | XMS_ITS ---
[facility] Organization Unknown Care Team Organization Name Specialty Phone Email Start Date End Da te [facility] Termed, PROVIDER Primary Care 06/17/202203/10
== END 2025-03-16 11:15 | disposition home or self-care (01) ==
LOC: HO.HMCFM 10:43
PROVIDERS: PCP Nurse Practitioner Family; Visit Provider Nurse Practitioner Family
DX: Z76.89 Persons encountering health services in other specified circumstances (principal); M20.22 Hallux rigidus, left foot; R20.2 Paresthesia of skin; Z23 Encounter for immunization; N18.31 Chronic kidney disease, stage 3a; E55.9 Vitamin D deficiency, unspecified; Z00.00 Encounter for general adult medical examination without abnormal findings

== ENCOUNTER → 2025-03-16 10:42 | Outpatient (BNVA) | payer BC, SELFPAY | PROVIDERS: PCP Nurse Practitioner Family; Visit Provider Nurse Practitioner Family | DX: Z00.00 Encounter for general adult medical examination without abnormal findings (principal); Z76.89 Persons encountering health services in other specified circumstances; Z23 Encounter for immunization; M20.22 Hallux rigidus, left foot; R20.2 Paresthesia of skin; N18.31 Chronic kidney disease, stage 3a; E55.9 Vitamin D deficiency, unspecified; Z13.31 Encounter for screening for depression; Z13.39 Encounter for screening examination for other mental health and behavioral disorders | CPT/HCPCS: 90471; 90715; 96127 ==

== ENCOUNTER 2025-06-10 06:41 | Outpatient (REF) | payer BC, SELFPAY ==
--- OUTSIDE RECORDS SUMMARY | 2025-06-10 06:45 | XMS_ITS | Encounter Summary ---
Author Organization [facility] Address [address] [place] [address] Phone Care Team Providers Care Clinical Associate Name Role Phone Ursula Fuller MD Primary Care Provider [phone] Encounter Details Date Type Department Care Team (Late st Contact Info) Description 04/10/2022 Documentation Only [facility] [address] [place] [phone] Ursula Fuller MD [address] [place], [place] [id number] Social History Tobacco Use Types Packs/Day Years [...] on filedocumented in this encounter Care Teams Clinical Associate Relationship Specialty Start Date End Date Ursula Fuller MD [address] [facility], [address] [place], [place] [id number] PCP - General Internal Medicine 04/10/22 documented as of this encounter
--- OUTSIDE RECORDS SUMMARY | 2025-06-10 06:45 | XMS_ITS | Clinical Summary ---
Author Organization [facility], Address [address] [place] [phone] Phone Care Team Providers Care Conventions Reservationist Name Role Phone Ursula Fuller MD Primary Care Provider [phone] Allergies Active Allergy Reactions Criticality Noted Date Comments [place] Oil 06/05/2022 Amoxicillin 06/05/2022 Medications levonorgestrel-e thinyl [...] PCV) 1996 Influenza Vaccine (#1) 2025 Insurance [facility] Care Teams Conventions Reservationist Relationship Specialty Start Date End Date Ursula Fuller MD [address] [place] [address], [facility] [address] [place] [address] PCP - General Internal Medicine 04/10/22
[2025-06-10 11:32] LABS: Hematocrit 37.7 % (37.0-47.0); Hemoglobin 12.5 g/dl (12.0-16.0); Mean Corpuscular HGB Conc 33.2 g/dl (31.0-35.0); Mean Corpuscular Hemoglobin 31.4 pg (27.0-33.0); Mean Corpuscular Volume 94.7 fL (80.0-98.0); NRBC Abs Auto 0.000 X10*3/uL (0.0-0.012); NRBC Pct Auto 0.0 /100WBC (0.0-0.2); Platelet Count 263 X10*3/uL (160-400); Red Blood Count 3.98 X10*6/uL (4.20-5.50); White Blood Count 6.3 X10*3/uL (4.8-10.8)
[2025-06-10 11:42] LABS: Total Hemoglobin (HGBA1C) 3277.2242 umol/L
[2025-06-10 11:58] LABS: Alanine Aminotransferase 14 U/L (0-31); Albumin Level 4.3 g/dL (3.5-5.0); Alkaline Phosphatase 46 U/L (39-117); Anion Gap 10 (12-20); Aspartate Amino Transferase 24 U/L (5-31); Blood Urea Nitrogen 15 mg/dL (9-16); Calcium 8.9 mg/dL (8.4-10.2); Carbon Dioxide 25 mmol/L (22-29); Chloride 108 mmol/L (96-108); Cholesterol 166 mg/dL (<200); Estimated Glomerular Filt Rate 56; HDL Cholesterol 58 mg/dL (>40); Potassium 3.8 mmol/L (3.3-5.1); Sodium 139 mmol/L (135-145); Total Protein 6.9 g/dL (6.5-8.0); Triglycerides 56 mg/dL (<150)
[2025-06-10 12:19] LABS: Folate 11.8 ng/mL (> or = 4.0); Vitamin B12 209 pg/mL (200-900)
== END 2025-06-10 06:42 | disposition home or self-care (01) ==
LOC: HO.HMGCLDS 06:41
PROVIDERS: PCP Nurse Practitioner Family; Visit Provider Nurse Practitioner Family
DX: Z00.00 Encounter for general adult medical examination without abnormal findings (principal); E55.9 Vitamin D deficiency, unspecified; N18.31 Chronic kidney disease, stage 3a; Z13.1 Encounter for screening for diabetes mellitus; Z13.29 Encounter for screening for other suspected endocrine disorder
CPT/HCPCS: 36415; 80053; 80061; 82607; 82746; 83036; 84443; 85027

== ENCOUNTER 2025-06-27 14:43 | Outpatient (AMB) | payer BC, SELFPAY ==
--- OUTSIDE RECORDS SUMMARY | 2025-06-22 23:59 | XMS_ITS | Continuity of Care Document ---
Author Organization [facility] Address [address] [place] [address] Care Team Providers Care Paint Spray Inspector Name Role Phone rFancine ANGULO, Shola Apodaca Primary Care Physician [place] [facility] [place]): [place]/23/25 - 06/22/[address] [id number] Attending Physician: Ny Ledesma Admitting Physician: AdmtrNy Referring Physician: Admtr, [id number] Encounter Type: Triage Allergies, Adverse Reactions, Alerts Substance Criticality Severity Reaction Reaction Severity Status amoxicillin Active Buhl Oil Active Other Environmental Allergy 1 Active Nuts Resolved Ragweed Active Other Food Allergy Buhl A ctive 1Seasonal Allergies Medications Aerochamber See Instructions, # 1 units, Maintenance, use as directed with MDI., 07/02/12 4:22:02 PM EST Start Date: 07/02/12 Status: Ordered Medication Dispense Status: Completed Quantity: 1.0 Unit: Units Total Allowed Fills: 1 Fills Dispensed: 0 Albuterol (Eqv-ProAir HFA) 90 mcg/inh inhalation aerosol 2 puffs, Inhalation, Every 6 hours, # 1 each, 1 Refills, Maintenance, 07/27/23 9:05:00 AM EST, [facility], Partial fill upon patient request if the prescription is for a schedule II opioid drug., 2 puffs Inhalation Every 6 hours, 164, cm, 05/21/23 9:56:00 EDT, Height, 61.3, kg, 06/01/23 13:58:00 EDT, Dry Weight Start Date: 07/27/23 Status: Ordered Medication Dispense Status: Completed Quantity: 1.0 Unit: each Total Allowed Fills: 2 Fills Dispensed: 0 Albuterol (Eqv-ProAir HFA) 90 mcg/inh inhalation aerosol 2 puffs, Inhalation, Every 6 hours, # 8.5 Gm, 0 Refills, Maintenance, 07/27/23 9:05:00 AM EST, [facility], Partial fill upon patient request if the prescription is for a schedule II opioid drug., 2 puffs Inhalation Every 6 hours, 164, cm, 05/21/23 9:56:00 EDT, Height, 61.3, kg, 06/01/23 13:58:00 EDT, Dry Weight Start Date: 07/27/23 Status: Ordered Medication Dispense Status: Completed Quantity: 8.5 Unit: g Total Allowed Fills: 1 Fills Dispensed: 0 estradiol 0.1 mg/g vaginal cream = 1 Gm, Vaginally, Daily at bedtime, # 90 Gm, 3 Refills, Maintenance, 04/14/25 4:36:00 PM EDT, [facility], Partial fill upon patient request if the prescription is for a scheduleII opioid drug., 165, cm, 04/14/25 16:14:00 EDT, Height, 59.5, kg, 11/12/23 10:21:00 EDT, Dry Weight Start Date: 04/14/25 Status: Ordered Medication Dispense Status: Completed Quantity: 90.0 Unit: g Total Allowed Fills: 4 Fills Dispensed: 0 Flonase 50 mcg/inh nasal spray 1 sprays, Nares, Both, 2 times a day, # 16 Gm, 0 Refills, Maintenance, 07/29/22 9:28:00 AM EST, [facility], Partial fill upon patient request if the prescription is for a schedule II opioid drug. Start Date: 07/29/22 Status: Ordered Medication Dispense Status: Completed Quantity: 16.0 Unit: g Total Allowed Fills: 1 Fills Dispensed: 0 Kurvelo 0.15 mg-30 mcg oral tablet 1 tablet, By Mouth, Daily, Take this medication at the same time every day. do not miss/skip pills., # 84 tablet, 5 Refills, Maintenance, 04/14/25 4:36:00 PM EDT, Tablet, [facility], Partial fill upon patient request if the prescription is for a schedule II opioid drug., 1 tablet By Mouth Daily,Instr:Take this medication at the same time every day. do not miss/skip pills., 165, cm, 04/14/25 16:14:00 EDT, Height, 59.5, kg, 11/12/23 10:21:00 EDT, Dry Weight Start Date: 04/14/25 Status: Ordered Medication Dispense Status: Completed Quantity: 84.0 Unit: tablet Total Allowed Fills: 6 Fills Dispensed: 0 methenamine hippurate 1 gm oral tablet 1 tablet = 1 Gm, By Mouth, 2 times a day, for 90 days, # 180 tablet, 3 Refills, Acute 09/14/25 8:28:00 AM EST, 09/19/24 8:28:00 AM EST, Tablet, [facility], Partial fill upon patient request if the prescription is for a schedule II opioid drug., 165, cm, 04/06/24 13:18:00 EDT, Height, 59.5, kg, 11/12/23 10:21:00 EDT, Dry Weight Start Date: 09/19/24 Stop Date: 09/14/25 Status: Ordered Medication Dispense Status: Completed Quantity: 180.0 Unit: tablet Total Allowed Fills: 4 Fills Dispensed: 0 methenamine hippurate 1 gm oral tablet 1 tablet = 1 Gm, By Mouth, 2 times a day, For UTI prevention, # 180 tablet, 4 Refills, Maintenance,09/28/23 10:10:00 AM EST, [facility], Partial fill upon patient request if the prescription is for a schedule II opioid drug., 164, cm, 05/21/23 9:56:00 EDT, Height, 61.3, kg, 06/01/23 13:58:00 EDT, Dry Weight Start Date: 09/28/23 Status: Ordered Medication Dispense Status: Completed Quantity: 180.0 Unit: tablet Total Allowed Fills: 5 Fills Dispensed: 0 nitrofurantoin macrocrystals 100 mg oral capsule 1 capsule = 100 mg, By Mouth, Once, PRN post coital, # 30 capsule, 3 Refills, Soft Stop, 05/21/23 10:29:00 AM EDT, Capsule, [id number], Partial fill upon patient request if the prescription is for a schedule II opioid drug., 164, cm, 05/21/23 9:56:00 EDT, Height, 58.2, kg, 03/14/23 17:18:00EDT, Dry Weight Start Date: 05/21/23 Status: Ordered Medication Dispense Status: Completed Quantity: 30.0 Unit: capsule Total Allowed Fills: 4 Fills Dispensed: 0 Qvar Redihaler 80 mcg/inh inhalation aerosol See Instructions, 1 puff in conjunction with Albuterol PRN Wheezing/Shortness of breath; If using daily contact pulmonary practice., # 1 each, 11 Refills, Maintenance, 12/31/23 3:26:00 PM EDT, Aerosol, [id number], Replacing Arnuity ;, 1 puff in conjunction with Albuterol PRN Wheezing/Shortness of breath; If using daily contact pulmonary practice., 165, cm, 12/31/23 9:51:00 EDT, Height, 59.5, kg, 11/12/23 10:21:00 EDT, Dry Weight Start Date: 12/31/23 Status: Ordered Medication Dispense Status: Completed Quantity: 1.0 Unit: each Total Allowed Fills: 12 Fills Dispensed: 0 Indications: Mild intermittent asthma, uncomplicated; Vitamin D3 50,000 intl units oral capsule TAKE 1 CAPSULE BY MOUTH ONCE A MONTH FOR 12 MONTHS Start Date: 12/13/24 Status: Ordered Medication Dispense Status: Completed Total Allowed Fills: 1 Fills Dispensed: 0 Problem List Condition Confirmation Course Effective Dates Status H ealth Status Informant Cervical lymphadenopathy Confirmed Active Stage 3a chronic kidney disease (CKD) Confirmed Active Rectocele Confirmed Active Food allergic- cauliflower, grape fuit, almonds Confirmed Active Mild intermittent asthma Confirmed Active Nocturia Confirmed Active Overactive bladder Confirmed Active Hypertonic bladder Confirmed Active Pelvic floor weakness Confirmed Active Recurrent UTI Confirmed Active Weight gain Confirmed Active Social History Social History Type Response Smoking Status Never (less than 100 in lifetime) entered on: 02/26/22 Sexual Orientation Self described orien tation: ; Straight or heterosexual Sex Sex Representation Female (finding) Patient Care team information Care Team Personnel Name: Shola Escamilla MD Position: S Outreach Member Role: PCP Address: [address] [place], [place] [address] Telecom: Care Team Related Persons Name: RICHARD JOSEPH Name: BRANDYN HOYT Insurance Providers Guarantor name: MEL HOYT Health Plan Information #: 1 [facility] Payer Identifier: NA Member Number: [id number] Group Number: [id number] Subscriber Identifier: MAN Relationship to Subscriber: self Coverage Type: NA Coverage Verification Date: NA Telecom: NA Address:
--- OUTSIDE RECORDS SUMMARY | 2025-06-22 23:59 | XMS_ITS | Continuity of Care Document ---
Author Organization [facility] Address [address] [place] [address]- Care Team Providers Care Tutoring Clinician Name Role Phone Francine ANGULO, Shola Apodaca Primary Care Physician [phone] Encounter [facility] Date(s): 05/16/25 - 06/22/25 [facility] [place] [address] [place], [place] [id number] Attending Physician: Not on Staff, Attending MD Referring Physician: [place] SANTANA PARTS ROOM CLERK, Rivera Blair Encounter Type: Pre-OutPatient One Time Allergies, Adverse Reactions, Alerts Substance Criticality Severity Reaction Reaction Severity Status amoxicillin Active [place] Oil Active Other Environmental Allergy 1 Active Nuts Resolved Ragweed Active Other Food Allergy [place] A ctive 1Seasonal Allergies Medications Aerochamber See [...] 1 Refills, Maintenance, 07/27/23 9:05:00 AM EST, [facility], Partial fill upon patient request if the prescription is for a schedule II opioid drug., 2 puffs Inhalation Every 6 hours, 164, cm, 05/21/23 9:56:00 EDT, Height, 61.3, kg, 10/23/23 13:58:00 EDT, Dry Weight Start Date: 07/27/23 Status: Ordered Medication Dispense Status: Completed Quantity: 1.0 Unit: each Total Allowed Fills: 2 Fills Dispensed: 0 Albuterol (Eqv-ProAir HFA) 90 mcg/inh inhalation aerosol 2 puffs, Inhalation, Every 6 hours, # 8.5 Gm, 0 Refills, Maintenance, 07/27/23 9:05:00 AM EST, [facility], Partial fill upon patient request if [...] 3 Refills, Maintenance, 04/14/25 4:36:00 PM EDT, [facility], Partial fill upon patient request if [...] 0 Refills, Maintenance, 07/29/22 9:28:00 AM EST, [place], Partial fill upon patient request if the [...] Refills, Maintenance, 04/14/25 4:36:00 PM EDT, Tablet, [facility], Partial fill upon patient request if [...] AM EST, 09/19/24 8:28:00 AM EST, Tablet, [facility], Partial fill upon patient request if [...] tablet, 4 Refills, Maintenance,09/28/23 10:10:00 AM EST, [facility], Partial fill upon patient request if [...] Position: S Outreach Member Role: PCP Address: [address] [place] [id number] Telecom: Care Team Related Persons Name: RICHARD JOSEPH Name: BRANDYN HOYT Insurance Providers Guarantor name: MEL HOYT Health Plan Information #: 1 Payer: [facility] Payer Identifier: NA Member Number: [id number] Group Number: [id number] Subscriber Identifier: [id number] Relationship to Subscriber: self Coverage Type: NA Coverage Verification Date: NA Telecom: Address:
--- NOTE | 2025-06-27 14:46 | A.OFFPC_ITS ---
Vital Signs 06/27/25 14:49 Height 5 ft 5 in Weight 149 lb 6 oz BMI 24.9 BP 102/68 Blood Pressure Location Lt brachial Position Sitting Respiration 12 Pulse 55 Pulse Source Pulse Oximeter Temp 97.2 F Temp Source Oral Pulse Oximetry (%) 100 Oxygen Delivery Method Room Air Intake Visit Reasons: move her Nov CPE to my schedule Intake Note: CPE. Patient requesting a few referrals Marketing Support Manager Required: No Allergies amoxicillin Allergy (Severe, Verified 06/27/25 15:01) Hives cauliflower Allergy (Severe, Verified 06/27/25 15:01) Rash grapefruit Allergy (Severe, Verified 06/27/25 15:01) Anaphylaxis almonds Allergy (Severe, Uncoded 06/27/25 14:47) Rash Medication List - Last Reconciled 06/27/25 by Ely Ventura, SKIMMER- albuterol sulfate 90 mcg/actuation inhalation PRN beclomethasone dipropionate 80 mcg/actuation (Qvar RediHaler) 1 inh inhalation Q12H PRN cholecalciferol (vitamin D3) 1,250 mcg PO .Q monthly 12 months estradiol 0.01%(0.1mg/gram) vaginal levonorgestrel-ethinyl estrad 0.15-0.03 mg (Marlissa (28)) 1 tab PO DAILY methenamine hippurate 1 g PO BID omega 2-bhy-xzs-fish oil 60-90-500 mg (Fish Oil) 1 cap PO DAILY psyllium husk (Metamucil) 0.4 grams PO BEDTIME Tobacco use date assessed: 06/27/25 Dental Screening Dental Screen Date: 06/27/25 Did you have a dental visit in the last 12 months?: Yes Did you have a dental problem in the last 6 months where you did not have access to dental care?: No Was dental information given to patient?: Patient has dentist HPI HPI Comments History of Present Illness Details 49-year-old female with chronic UTIs, overactive bladder, chronic kidney disease stage 3A, JAKE, Lymes disease, Vit D def SurgHx: lipoma removal from skin FHx: Mom: HTN, HLD, Diverticulitis, colonic polyps cKD3; Dad: HLD. mGF: bone Cancer . pGF: Lymphoma. SocHx: Nonsmoker. etOH on Vacations. Health Maintenance: Colonoscopy: Completed 11/2023 and needs a repeat in 2028 due to precancerous polyps. Mammo: UTD, 06/03- does at [facility] (2024 from [facility]) Pap 03/2024 Tdap 03/16/2025 DEXA Flu 05/2025 @ [facility] Specialists: UroGyn Renal Derm Sleep Med zoology technical officer: [facility], 04/02- sees Ursula Colvin History of Present Illness The patient is a 49-year-old female presenting for a complete physical exam. Wellness and Preventative Care: - The patient presents for an annual phy sical. - She received an influenza vaccine in . - A mammogram was completed in May ith normal results. - She has an upcoming appointment for a skin cancer screening with dermatology on September 20 and requires a referral. - She is following a Mediterranean diet; she previously lost 50 pounds, dropping from 170 to 120 pounds, but has since regained weight and is now 149 pounds. - She reports drinking 8-9 cups of water per day. Chronic Kidney Disease, stage 3A: - The patient has a history of CKD stage 3A and is co-managed by nephrology. - Recent lab results show a stable GFR, consistent with her diagnosis. - She takes fish oil as recommended by h research executive. Chronic Urinary Tract Infections: - The patient has a history of chronic U TIs and is managed by urogynecology. - She is currently taking methenamine. - A referral is requested for an appoint ment with Dr. Pavel Muniz on September 18. Obstructive Sleep Apnea: - The patient has a history of obstructi ve sleep apnea and is managed by sleep medicine. Hyperlipidemia: - Her LDL cholesterol was previously hig h but has improved to 97 on recent labs. - Her mother also has issues with high c holesterol. History of precancerous colon polyps: - A colonoscopy in November 2023 revealed p recancerous polyps. - Her mother has a history of developing polyps with every colonoscopy. - A repeat colonoscopy is recommended in 2028. - She has expressed concerns about the d ifficulty of scheduling appointments. Vitamin D Deficiency: - The patient has a history of low vitam in D and is taking a prescription- strength supplement. Past Medical History - Chronic urinary tract infections - Overactive bladder - Chronic kidney disease, stage 3A - Obstructive sleep apnea - Lyme disease - Hyperlipidemia - History of precancerous colonic polyps - Vitamin D deficiency - Chronic constipation - Bone spurs Past Surgical History - Excision of skin lesions from her back Family History - Mother: Hypertension, hyperlipidemia, diabetes, recurrent colonic polyps, and recently diagnosed with kidney disease. - Father: Hyperlipidemia. - Maternal grandfather: Lung cancer. - Paternal grandfather: Lymphoma. Social History - Alcohol: Drinks socially on occasion, such as on vacation, but reports it causes urinary frequency. - Tobacco: Denies any history of smoking . - Diet: Follows a Mediterranean diet. Nany rueda previously lost 50 lbs, going from 170 to 120 lbs. Her current weight is 149 lbs. She reports a bad sweet tooth and tries not to keep tempting foods in the house. - Hydration: Drinks 8-9 cups of water pe r day. - Exercise: The patient reports she is t rying to focus on exercise. - Psychosocial: Screens negative for dep ression and reports normal anxiety. She denies food insecurity. Health Maintenance - Vaccinations: Received a Tdap vaccine recently and an influenza vaccine in May. - Cancer Screening: Mammogram was comple ana in May and was normal. Last colonoscopy was in November 2023, which showed precancerous polyps; repeat is due in 2028. Has an upcoming appointment for a skin cancer screening. - Gynecological health: She sees a gynec ologist and denies any history of abnormal Pap smears. Her last visit was an exam only. - Mental Health Screening: Depression an d anxiety screenings are negative. - Diet and Lifestyle: Counseled on manag ing sweet cravings with water and distraction. Encouraged to continue her diet and hydration habits, reinforcing the 80/20 principle for sustainable healthy living. Review of Systems - General: Denies fever or chills. Repor ts weight gain. - Musculoskeletal: Reports significant s oreness in her arm after a recent Tdap vaccination. Also reports some pain related to bone spurs, which she has chosen not to treat surgically. - Gastrointestinal: Reports chronic cons tipation. - Genitourinary: History of chronic UTIs and overactive bladder. Reports increased urinary frequency with alcohol consumption. - Psychiatric: Denies depression. Report s normal anxiety. - Allergic/Immunologic: Denies any medic ation allergies. Physical Exam General: Well developed, well nourished, in no acute distress. Appears stated age. Head: Normocephalic, atraumatic. Eyes: Pupils are equal, round and reactive to light and accommodation. Conjunctivae are clear. Scleras nonicteric bilat. Vision grossly normal. Ears: TMs clear AU, EACS WNL Nose: Patent, without discharge. Neck: No carotid bruit bilat. Supple, no adenopathy or thyromegaly. Breast: Edu on SBE Lungs: Clear to auscultation bilaterally. No rales, rhonchi or wheeze noted. Good air flow in all rodgers. Heart: Regular rate and rhythm. No murmurs, click, rubs or gallops are noted. Abdomen: Bowel sounds present in all quadrants. The abdomen is soft, nontender, with no masses or organomegaly noted. No hernias are noted. : Deferred. 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 Extremities: No clubbing, cyanosis nor edema is noted. Neurologic: Gait and station normal. Cranial Nerves 2-12 intact. Motor strength grossly symmetrical and intact. No sensory loss. Balance normal. Skin: No rashes, ulcers, or lesions noted. Turgor is good. Skin color is good. Hair and nails are without abnormalities. Psych: Normal eye contact, affect and mood appropriate, and normal interactions. Patient is alert and appropriate to context. Results - Labs (from June): - CBC: White blood cell count 3.98 (bord brenda low). Other cell counts normal. - CMP: GFR stable and consistent with CK D. Creatinine 1.05. Electrolytes and glucose normal. - Hemoglobin A1c: 4.8%. - Lipid Panel: LDL 97, HDL 58, Total Cho lesterol 168. - Other labs: Liver function tests, prot ein, Vitamin B12, folate, and thyroid studies are all normal. - Procedures: - Colonoscopy (November 2023): Revealed pre cancerous polyps. - Imaging: - Mammogram (May 2024): Results were normal. Medical Decision Making The patient is a 49-year-old female for a complete physical exam. Her multiple chronic conditions, including chronic kidney disease stage 3A, overactive bladder, and obstructive sleep apnea, are stable and are being appropriately ma naged by specialists. A review of her recent laboratory studies is reassuring. Her GFR has remained stable, and her lipid panel shows significant improvement with an LDL of 97, which is a positive outcome of her dietary efforts. Her hemoglobin A1c is excellent at 4.8%. The patient is diligent with her preventative health screenings. Her history of precancerous colon polyps warrants close monitoring, and a plan was discussed to ensure timely follow-up in 5 years. Referrals were placed for her upcoming urogynecology and dermatology appointments. Patient counseling focused on reinforcing her positive health behaviors, including diet and hydration, and providing strategies for managing cravings. Plan 1. Wellness And Preventative Care - Continue with annual physical examinat ions. - Referrals for dermatology (skin cancer screening) and urogynecology (chronic UTI follow-up) will be placed. - Discussed recent lab results, which ar e stable and show improvement in lipid profile. No new labs ordered today. - Provided counseling on maintaining a h ealthy diet, managing cravings, and the importance of hydration. 2. Chronic Kidney Disease, Stage 3A - Patient will continue to be co-managed by her research executive. - Encourage continued adequate hydration , as the patient reports drinking 8-9 cups of water daily. - Lab results show stable GFR, indicatin g no progression of her CKD. 3. Chronic Urinary Tract Infections - Patient to continue taking methenamine as prescribed. - She will proceed with her scheduled ur ogynecology follow-up appointment. 4. Hyperlipidemia - Recent lab results show significant im provement in LDL to 97. No lipid- lowering medication is indicated at this time. - Encouraged patient to continue with he r dietary modifications and healthy lifestyle habits. 5. History Of Precancerous Colon Polyps - The plan is for a repeat colonoscopy i n 2028, five years after her last procedure. - Advised the patient to contact the gas troenterologist's office annually to ensure her chart remains active, which may facilitate scheduling her next procedure. - A new referral will be entered in 2027 to remind the specialist practice that she is due for a follow-up. 6. Vitamin D Deficiency - The patient will continue her current prescription-strength vitamin D supplement. - Clarified that the prescribed dose is significantly higher than what is available over the counter. Patient Instructions - We have sent the referrals for your up coming appointments with Dermatology on September 20 and Urogynecology on September 18. - Continue taking all your medications a s prescribed, including the high-dose vitamin D, methenamine, and your control. - Your recent lab work showed very good results, especially your cholesterol, which has improved. Your kidney function is stable. Continue with your healthy diet. - Keep drinking plenty of water, about 8 to 9 glasses per day, as this is very good for your kidney health. - To help with scheduling your next colo noscopy in 2028, it is a good idea to call your gastroentology office once a year to remind them you are a patient. - If you have a craving for sweets, try drinking a full glass of water and walking away for 15 minutes to see if the urge passes. - Please schedule your next annual physi anup exam in one year. Consent Patient was informed and verbally consented to the use of an ambient scribe for clinic note documentation during this visit. [facility] Medical History (Updated 06/27/25 @ 15:39 by GARIMA Bahena) Allergic No pertinent family history Surgical History (Updated 06/27/25 @ 15:39 by GARIMA Bahena) No pertinent past surgical history Social History Housing: House Alcohol intake: current Comment: ocasionally Patient Tobacco Use Status: Never used Tobacco e-Cigarette/Vaping Use: Never Used Second Hand Smoke Exposure: No service: No Current occupational status: employed Current occupation: [employer] Current occupational exposures/hazards: No Cognitive needs: No Hearing needs: No Vision needs: Yes Questionnaire PHQ-9 Over the last 2 weeks, how often have you been bothered by any of the following problems? 1. Little interest or pleasure in doing things: not at all 2. Feeling down, depressed, or hopeless: not at all 3. Trouble falling or staying asleep, or sleeping too much: not at all 4. Feeling tired or having little energy: not at all 5. Poor appetite or overeating: not at all 6. Feeling bad about yourself - or that you are a failure or have let yourself or your family down: not at all 7. Trouble concentrating on things, such as reading the newspaper or watching television: not at all 8. Moving or speaking so slowly that other people could have noticed. Or the opposite - being so fidgety or restless that you have been moving around a lot more than usual: not at all 9. Thoughts that you would be better off or of hurting yourself in some way: not at all Total score: 0 Depression Screening Interpretation: Negative Depression Screening Done: Yes 18950 - PHQ-9 Billing: Yes Source: Developed by Drs. Macario Krishnamurthy, Zainab Weber, Jose Alfredo Upton and colleagues, with an educational walt from [employer]. Thrive Questionnaire Date Thrive assessed: 06/27/25 I am a: Patient What is your living situation today?: I have a steady place to live Within the past 12 months, did the food you bought not last and you didn't have the money to get more?: Never true Within the past 12 months, did you worry whether your food would run out before you got money to buy more?: Never true Do you have trouble paying for medicines?: No Do you have trouble getting transportation to medical appointments?: No Do you have trouble paying your heating and electricity bill?: No Do you have trouble taking care of your child, family member or friend?: No Do you have trouble with day-to-day activities such as bathing, preparing meals, shopping, managing finances, etc.?: No Are you currently unemployed and looking for a job?: No Are you interested in more education?: No Please select the resources that you would like help with: None Currently or been in a relationship where the following occur: No concerns reported THRIVE Score: 0 AUDIT C Alcohol Use Questionnaire (AUDIT-C) 1. How often do you have a drink containing alcohol?: Never 3. How often do you have six or more drinks on one occasion?: Never Total Score: 0 Score Reviewed/Action Taken: Yes ANNA-7 AMB Questionnaire ANNA-7 Date NANA - 7 assessed: 06/27/25 Feeling nervous, anxious, or on edge: 0 = Not at all Not being able to stop or control worryin = Not at all Worrying too much about different things: 0 = Not at all Trouble relaxin = Not at all Being so restless that it is hard to sit still: 0 = Not at all Becoming easily annoyed or irritable: 0 = Not at all Feeling afraid as if something awful might happen: 0 = Not at all Total ANNA-7 score (0-4 normal; 5-9 mild; 10-14 moderate; 15-21 severe): 0 Source: Developed by Drs. Macario Krishnamurthy, Zainab Weber, Jose Alfredo Upton and colleagues, with an educational walt from [employer]. ANNA-7 Assessment Billing ANNA-7 Assessment Tool: ANNA-7 Assessment 00896 Physical exam (Primary Care) Vital Signs: Last Vital Signs Temp 97.2 F 06/27/25 14:49 Pulse 55 06/27/25 14:49 Resp 12 06/27/25 14:49 BP 102/68 06/27/25 14:49 Pulse Ox 100 06/27/25 14:49 Oxygen Delivery Method Room Air 06/27/25 14:49 BMI result Body Mass Index 24.9 Tobacco/Smoking Status: Tobacco use Status Tobacco use date assessed 06/27/25 06/27/25 14:51 Patient Tobacco Use Status Never used Tobacco 06/27/25 14:51 e-Cigarette/Vaping Use Never Used 06/27/25 14:51 PHQ-9: PHQ-9 Score PHQ-9: Total score 0 06/27/25 14:53 Depression Screening Interpretation: Negative Thrive Assessment: Date of Thrive Assessment Date Thrive assessed 06/27/25 06/27/25 14:51 Currently or been in a relationship where the following occur: No concerns reported Results Reviewed Results Reviewed: Laboratory 06/10/25 Result Units Range Interpretation Provider Comments White Blood Count 6.3 X10*3/uL (4.8-10.8) Red Blood Count 3.98 X10*6/uL (4.20-5.50) Low Hemoglobin 12.5 g/dl (12.0-16.0) Hematocrit 37.7 % (37.0-47.0) Mean Corpuscular Volume 94.7 fL (80.0-98.0) Mean Corpuscular Hemoglobin 31.4 pg (27.0-33.0) Mean Corpuscular Hemoglobin Concent 33.2 g/dl (31.0-35.0) Red Cell Distribution Width 11.8 % (11.0-16.0) Platelet Count 263 X10*3/uL (160-400) Mean Platelet Volume 9.4 fL (9.4-12.3) Nucleated RBC Absolute Count (auto) 0.000 X10*3/uL (0.0-0.012) Nucleated Red Blood Cells % (auto) 0.0 /100WBC (0.0-0.2) Sodium Level 139 mmol/L (135-145) Potassium Level 3.8 mmol/L (3.3-5.1) Chloride Level 108 mmol/L (96-108) Carbon Dioxide Level 25 mmol/L (22-29) Anion Gap 10 (12-20) Low Blood Urea Nitrogen 15 mg/dL (9-16) Creatinine 1.05 mg/dL (0.5-1.4) Estimated Creatinine Clearance Calc Not Reportable Estimat Glomerular Filtration Rate 56 Random Glucose 82 mg/dL (60-115) Estimated Average Glucose 91 mg/dL Hemoglobin A1c Percent 4.8 % (<6.0) Calcium Level 8.9 mg/dL (8.4-10.2) Total Bilirubin 0.8 mg/dL (0.0-1.0) Aspartate Amino Transf (AST/SGOT) 24 U/L (5-31) Alanine Aminotransferase (ALT/SGPT) 14 U/L (0-31) Alkaline Phosphatase 46 U/L (39-117) Total Protein 6.9 g/dL (6.5-8.0) Albumin 4.3 g/dL (3.5-5.0) Triglycerides Level 56 mg/dL (<150) Cholesterol Level 166 mg/dL (<200) LDL Cholesterol, Calculated 97 mg/dL (<100) HDL Cholesterol 58 mg/dL (>40) Vitamin B12 Level 209 pg/mL (200-900) Folate 11.8 ng/mL (> or = 4.0) Thyroid Stimulating Hormone (TSH) 1.98 uIU/mL (0.32-4.0) Coding Level of Care Code Est Pt Prev Care 40-64y(60526) Diagnoses Adult general medical exam Z00.00 Screening for malignant neoplasm of skin Z12.83 Gynecologic disorder N94.9 Chronic UTI N39.0 Laboratory exam ordered as part of routine general medical examination Z00.00 Vitamin D deficiency E55.9 History of colonoscopy Z98.890 Hyperplastic colon polyp K63.5 History of Papanicolaou smear of cervix Z92.89 History of mammogram Z92.89 Additional Codes ANNA-7 Assessment Billing - ANNA-7 Assessment Tool: ANNA-7 Assessment [id number] ([id number]) PHQ-9 - 55508 - PHQ-9 Billing: Yes ([id number]) Assessment & Plan Assessment & Plan (1) Adult general medical exam: Onset Date: ~06/27/25 Code(s): Z00.00 - Encounter for general adult medical examination without abnormal findings Category: Medical (2) Screening for malignant neoplasm of skin: Comment: [facility] Code(s): Z12.83 - Encounter for screening for malignant neoplasm of skin Category: Medical (3) Gynecologic disorder: Comment: DR GABRIELLE RODRIGUEZ [facility] Code(s): N94.9 - Unspecified condition associated with female genital organs and menstrual cycle Category: Medical (4) Chronic UTI: Code(s): N39.0 - Urinary tract infection, site not specified Category: Medical (5) Laboratory exam ordered as part of routine general medical examination: Code(s): Z00.00 - Encounter for general adult medical examination without abnormal findings Category: Medical (6) Vitamin D deficiency: Code(s): E55.9 - Vitamin D deficiency, unspecified Category: Medical (7) History of colonoscopy: Onset Date: ~2023 Comment: REPEAT 2028 [facility] Code(s): Z98.890 - Other specified postprocedural states Category: Medical (8) Hyperplastic colon polyp: Code(s): K63.5 - Polyp of colon Category: Medical (9) History of Papanicolaou smear of cervix: Onset Date: ~03/2024 Code(s): Z92.89 - Personal history of other medical treatment Category: Medical (10) History of mammogram: Onset Date: ~05/2025 Code(s): Z92.89 - Personal history of other medical treatment Category: Medical Plan . Orders: Orders Lipid Panel 1 Year Z00.00 - Encounter for general adult medical examination without abnormal findings Microalbumin, Random (w Creat) 1 Year Z00.00 - Encounter for general adult medical examination without abnormal findings TSH reflex Free T4 1 Year Z00.00 - Encounter for general adult medical examination without abnormal findings Complete Blood Count no Diff 1 Year Z00.00 - Encounter for general adult medical examination without abnormal findings Comprehensive Met. Panel 1 Year Z00.00 - Encounter for general adult medical examination without abnormal findings Hemoglobin A1c 1 Year Z00.00 - Encounter for general adult medical examination without abnormal findings Vitamin B12 and Folate 1 Year Z00.00 - Encounter for general adult medical examination without abnormal findings Vitamin D 25-OH Total 1 Year Z00.00 - Encounter for general adult medical examination without abnormal findings Referrals Urogynecology Referral N39.0 - Urinary tract infection, site not specified, N94.9 - Unspecified condition associated with female genital organs and menstrual cycle Dermatology Referral Z12.83 - Encounter for screening for malignant neoplasm of skin Patient Instructions: Health screenings for women You should visit your health care provider from time to time, even if you are healthy. The purpose of these visits is to: Screen for medical issues Assess your risk for future medical problems Encourage a healthy lifestyle Update vaccinations and other preventive care services Help you get to know your provider in case of an illness Information Even if you feel fine, you should still see your provider for regular checkups. These visits can help you avoid problems in the future. For example, the only way to find out if you have high blood pressure is to have it checked regularly. High blood sugar and high cholesterol levels also may not have any symptoms in the early stages. A simple blood test can check for these conditions. There are specific times when you should see your provider or receive specific health screenings. The [place] Preventive Services Task Force publishes a list of re commended screenings. Below are screening guidelines for women ages 18 to 39. BLOOD PRESSURE SCREENING Your blood pressure should be checked at least once every 3 to 5 years if: Your blood pressure is in the normal range (top number less than 120 mm Hg and bottom number less than 80 mm Hg) You don't have risk factors for high blood pressure Ask your provider if you need your blood pressure checked more often if: The top number is 120 to 129 mm Hg or the bottom number is 70 to 79 mm Hg You have diabetes, heart disease, kidney problems, are overweight, or have certain other health conditions You have a first-degree relative with high blood pressure You are Black You had high blood pressure during a If the top number is 130 mm Hg or greater or the bottom number is 80 mm Hg or gr eater, this is considered stage 1 hypertension. Schedule an appointment with your provider to learn how you can reduce your blood pressure. Watch for blood pressure screenings in your area. Ask your provider if you can stop in to have your blood pressure checked. BREAST CANCER SCREENING Experts do not agree about the benefits of breast self-exams in finding breast cancer or saving lives. Talk to your provider about what is best for you. A screening mammogram is not recommended for most women under age 40. Your provider may discuss and recommend mammograms, MRI scans, or ultrasounds if you have an increased risk for breast cancer, such as: A mother or sister who had breast cancer at a young age (most often starting screening earlier than the age the close relative was diagnosed) You carry a high-risk genetic marker CERVICAL CANCER SCREENING Cervical cancer screening should start at age 21 years unless your provider advises otherwise. After the first test: Women ages 21 through 29 should have a Pap test every 3 years. Exoprts do not agree on whether HPV testing is recommended for this age group. Women ages 30 through 65 should be screened with either a Pap test every 3 years or the HPV test every 5 years or both tests every 5 years (called cotesting ). Women who have been treated for precancer (cervical dysplasia) should continue to have Pap tests for 20 years after treatment or until age 65, whichever is longer. If you have had your uterus and cervix removed (total hysterectomy), and you have not been diagnosed with cervical cancer or precancer (high grade cervical n eoplasia), you do not need cervical cancer screening. CHOLESTEROL SCREENING Cholesterol screening should begin at: Age 45 for women with no known risk factors for coronary heart disease Age 20 for women with known risk factors for coronary heart disease Repeat cholesterol screening should take place: Every 5 years for women with normal cholesterol levels More often if changes occur in lifestyle (including weight gain and diet) More often if you have diabetes, heart disease, kidney problems, or certain other conditions DIABETES SCREENING You should be screened for diabetes starting at age 35 and then repeated every 3 years if you have no risk factors for diabetes. Screening may need to start earlier and be repeated more often if you have other risk factors for diabetes, such as: You have a first degree relative with diabetes. You are overweight or have obesity. You have high blood pressure, prediabetes, or a history of heart disease. Screening for diabetes should be done if you are planning to become and you are overweight and have other risk factors such as high blood pressure. DENTAL EXAM Go to the dentist once or twice every year for an exam and cleaning. Your de ntist will evaluate if you need more frequent visits. EYE EXAM Have an eye exam every 5 to 10 years before age 40. If you have vision problems, have an eye exam every 2 years or more often if recommended by your provider. You should have an eye exam that includes an examination of your retina (back of your eye) at least every year if you have diabetes. IMMUNIZATIONS Commonly needed vaccines include: Flu shot: get one every year. COVID-19 vaccine: ask your provider what is best for you. Tetanus-diphtheria and acellular pertussis (Tdap) vaccine: have one at or after age 19 as one of your tetanus-diphtheria vaccines if you did not receive it as an adolescent. Tetanus-diphtheria: have a booster (or Tdap) every 10 years. Varicella vaccine: receive 2 doses if you never had chickenpox or the varicella vaccine. Hepatitis B vaccine: receive 2, 3, or 4 doses, depending on your exact circumstances. Measles, mumps, and rubella (MMR) vaccine: receive 1 to 2 doses if you are not already immune to MMR. Your provider can tell you if you are immune. Ask your provider about the human papillomavirus (HPV) vaccine if: You have not received the HPV vaccine in the past You have not completed the full vaccine series (you should catch up on this shot) Ask your provider if you should receive other immunizations if you have certain health problems that increase your risk for some diseases such as pneumonia. INFECTIOUS DISEASE SCREENING Women who are sexually active should be screened for chlamydia and gonorrhea up until age 25. Women 25 years and older should be screened for chlamydia and gonorrhea if at high risk. Screening for hepatitis C: All adults ages 18 to 79 should get a one-time test for hepatitis C. people should be screened at every . Screening for human immunodeficiency virus (HIV): All people ages 15 to 65 should get a one-time test for HIV. Depending on your lifestyle and medical history, you may also need to be screened for infections such as syphilis and HIV, as well as other infections. PHYSICAL EXAM All adults should visit their provider from time to time, even if they are healthy. The purpose of these visits is to: Screen for disease Assess your risk of future medical problems Encourage a healthy lifestyle Update your vaccinations and other preventive care services Maintain a relationship with a provider in case of an illness Your height, weight, and BMI should be checked at every exam. During your exam, your provider may ask you about: Depression and anxiety Diet and exercise Alcohol and tobacco use Safety issues, such as using seat belts, smoke detectors, and intimate partner violence Your medicines and risk for interactions SKIN SELF-EXAM Your provider may check your skin for signs of skin cancer, especially if you're at high risk, such as if you: Have had skin cancer before Have close relatives with skin cancer Have a weakened immune system OTHER SCREENING Talk with your provider about colon cancer screening if you have a strong family history of colon cancer or polyps, or if you have had inflammatory bowel disease or polyps yourself. Routine bone density screening of women under 40 is not recommended.
[2025-06-27 14:49] VITALS: BP 102/68; PULSE 55; RESP 12; TEMP 36.2; O2SAT 100; BMI 24.9
--- OUTSIDE RECORDS SUMMARY | 2025-06-28 12:35 | XMS_ITS | Encounter Summary ---
Author Organization [facility] Address [address] [place] [address] Phone Care Team Providers Care Cuff Turner Machine Operator Name Role Phone Ursula Fuller MD Primary Care Provider [phone] Encounter Details Date Type Department Care Team (Late st Contact Info) Description 04/10/2022 Documentation Only [facility] [address] [address] Ursula Fuller MD [address] [place] [address] Social History Tobacco Use Types Packs/Day Years [...] on filedocumented in this encounter Care Teams Cuff Turner Machine Operator Relationship Specialty Start Date End Date Ursula Fuller MD [address] [facility], [address] [place], [place] [id number] PCP - General Internal Medicine 04/10/22 documented as of this encounter
--- OUTSIDE RECORDS SUMMARY | 2025-06-28 12:35 | XMS_ITS | Clinical Summary ---
Author Organization [facility], Address [address] [place] [phone] Phone Care Team Providers Care Flash Designer Name Role Phone Ursula Fuller MD Primary Care Provider [phone] Allergies Active Allergy Reactions Criticality Noted Date Comments Fiatt Oil 06/05/2022 Amoxicillin 06/05/2022 Medications levonorgestrel-e thinyl [...] PCV) 1996 Influenza Vaccine (#1) 2025 Insurance [facility] Care Teams Flash Designer Relationship Specialty Start Date End Date Ursula Fuller MD [address] [place] [address], [facility] [address] [place] [address] PCP - General Internal Medicine 04/10/22
== END 2025-06-27 15:23 | disposition home or self-care (01) ==
LOC: HO.HMCFM 14:44
PROVIDERS: PCP Nurse Practitioner Family; Visit Provider Nurse Practitioner Family
DX: Z00.00 Encounter for general adult medical examination without abnormal findings (principal); Z12.83 Encounter for screening for malignant neoplasm of skin; N94.9 Unspecified condition associated with female genital organs and menstrual cycle; N39.0 Urinary tract infection, site not specified; E55.9 Vitamin D deficiency, unspecified; Z98.890 Other specified postprocedural states; K63.5 Polyp of colon; Z92.89 Personal history of other medical treatment

== ENCOUNTER → 2025-06-27 14:43 | Outpatient (BNVA) | payer BC, SELFPAY | PROVIDERS: PCP Nurse Practitioner Family; Visit Provider Nurse Practitioner Family | DX: Z00.00 Encounter for general adult medical examination without abnormal findings (principal); Z12.83 Encounter for screening for malignant neoplasm of skin; N94.9 Unspecified condition associated with female genital organs and menstrual cycle; N39.0 Urinary tract infection, site not specified; E55.9 Vitamin D deficiency, unspecified; K63.5 Polyp of colon; Z98.890 Other specified postprocedural states; Z92.89 Personal history of other medical treatment | CPT/HCPCS: 96127 ==